=== PATIENT | female | born 1985 | race Caucasian/White ===

== ENCOUNTER 2016-07-21 11:44 | Emergency (ER) | payer OTHER ==
[2016-07-21 11:51] VITALS: RESP 16; O2SAT 96
[2016-07-21] MEDS ORDERED: OXYCODONE/APAP 5/325 TAB PO ONE (12:05)
--- NOTE | 2016-07-21 12:08 | EDPHY ---
H & P Stated Complaint: Lower back pain; "I tweaked it this morning" Time Seen by Provider: 07/21/16 11:56 HPI/ROS: CHIEF COMPLAINT: acute low back pain HISTORY OF PRESENT ILLNESS: 31-year-old female history of chronic intermittent low back pain was been no vertically in the toilet this morning felt acute sharp sudden onset bilateral paraspinous lumbar pain reproducible exacerbated with range of motion, better if holding still. History of chronic right lower extremity radicular pain, not exacerbated today. No foot drop. No incontinence. No retention. No saddle anesthesia. No trauma or fall. No fever or chills. No flu-like symptoms. PRIMARY CARE PROVIDER:[facility] , Dr Hernandez REVIEW OF SYSTEMS: A ten point review of systems was performed and is negative with the exception of the items mentioned in the HPI PAST MEDICAL & SURGICAL HISTORY: Anxiety. Depression. Chronic intermittent low back pain SOCIAL HISTORY: nonsmoker , no injectable drug use PHYSICAL EXAM (Prior to examination, patient consented to physical exam, hands were washed and my usual and customary physical exam procedures followed) 1) GENERAL: Well-developed, well-nourished, alert and oriented. Appears nontoxic, stiff 2) HEAD: Normocephalic, atraumatic 3) HEENT: Pupils equal, round, reactive to light bilaterally. Sclera anicteric. Nasopharynx, oropharynx, clear, no lesions. 4) NECK: Full range of motion, no meningeal signs. 5) LUNGS: Clear auscultation bilaterally, no wheezes, no rhonchi, no retractions. 6) HEART: Regular rate and rhythm, no murmur, no heave, no gallop. 7) ABDOMEN: No guarding, no rebound, no focal tenderness, negative McBurney's, negative Nugent's, negative Rovsing's, negative peritoneal sign, 8) MUSCULOSKELETAL: Moving all extremities, no focal areas of tenderness, no obvious trauma. No peripheral edema or discoloration. 9) BACK: tender to palpation paraspinous lumbarmuscle. No CVA tenderness, no midline vertebral tenderness, no fluctuance, no step-off, no obvious trauma, no visual or palpable abnormality. Patella, Achilles reflexes intact to bilateral strength 5/5 10) SKIN: No rash, no petechiae. DIFFERENTIAL DIAGNOSIS: In no particular order, including but not limited to, fracture, sprain/strain, cauda equina, spinal infectious etiology. MEDICAL DECISION MAKING Lower index of suspicion for cauda equina, epidural abscess, epidural hematoma, lumbar myositis, diskitis, as the patient is neurologically intact in the lower extremities, has patella and Achilles reflexes intact and equal bilaterally, has no neurologic deficits, no incontinence, no retention, no midline pain, no fluctuance, afebrile, no flulike symptoms. Pain may be secondary to muscular strain, may be secondary to discogenic etiology. At this point I do not identify definitive indication for emergent MRI, however patient may necessitate this on an outpatient basis. We discussed pharmacologic intervention. Discussed indications risks benefits of steroids. She notes history of depression and notes that her depression is currently not fully controlled. No suicidal or homicidal ideation but does express concern about starting steroids. These will not be prescribed to the patient. Patient given acute back pain precautions. Patient verbalizes understanding of discharge instructions. I believe them be competent decision- makers. All questions and concerns have been addressed by me. Ample opportunity for questions have been provided . The patient understands that this diagnosis is provisional and can never be 100% accurate. Usual and customary warnings were given concerning the clinical impression and all the patient's questions were answered. The patient was instructed to return to the emergency department should her symptoms worsen or return, or develop any new symptoms, otherwise to followup as directed in discharge instructions. - Personal History LMP (Females 10-55): 15-21 Days Ago Current Tetanus Diphtheria and Acellular Pertussis (TDAP): Yes - Medical/Surgical History Other PMH: chronic back problems. sciatica. Graves disease. anxiety/ palpitations. depression - Social History Smoking Status: Never smoked Constitutional: Initial Vital Signs Temperature (C) 36.4 C 07/21/16 11:46 Heart Rate 79 07/21/16 11:46 Respiratory Rate 16 07/21/16 11:46 Blood Pressure 145/90 H 07/21/16 11:46 O2 Sat (%) 96 07/21/16 11:46 O2 Delivery Mode Room Air Allergies/Adverse Reactions: Sulfa (Sulfonamide Antibiotics) Allergy (Mild, Verified 07/21/16 11:52) Rash Home Medications: Medication Instructions Recorded Propranolol HCl [Inderal 40mg (*)] 40 mg PO 07/21/16 Thyroid Med 07/21/16 buPROPion [Wellbutrin] 100 mg PO 07/21/16 oxyCODONE/APAP 5/325 [Percocet 1 tab PO Q6 #10 tab 07/21/16 5/325] traMADol [Ultram 50 mg (*)] 50 mg PO Q4 07/21/16 Departure - Departure Disposition: Home, Routine, Self-Care Clinical Impression: Low back pain Qualifiers: Chronicity: acute Back pain laterality: bilateral Sciatica presence: with sciatica Sciatica laterality: sciatica of right side Qualified Code(s): M54.41 - Lumbago with sciatica, right side Condition: Good Instructions: Acute Low Back Pain (ED) Additional Instructions: Seek medical attention if you develop new or worsening pain, if you develop bladder or bowel dysfunction, numbness around your perineum, foot drop, or any other symptoms that concern you. Referrals: Hedy Hernandez MD [Primary Care Provider] - 2-3 days, call for appt. Prescriptions: oxyCODONE/APAP 5/325 [Percocet 5/325] 1 tab PO Q6 #10 tab
[2016-07-21 12:21] VITALS: BP 120/87; PULSE 82; TEMP 98.1
== END 2016-07-21 12:23 | disposition home or self-care (01) ==
DX: M54.41 Lumbago with sciatica, right side (principal)